=== PATIENT | male | born 1930 | race Caucasian/White ===

== ENCOUNTER 2017-07-30 12:06 | Inpatient (IN) | payer BC ==
[~2017-07-30] VITALS: Ht 188 cm; Wt 93.0 kg
[2017-07-30 12:06] VITALS: BP_SYST 171
--- NOTE | 2017-07-30 12:06 | NUR ---
[facility] BLS from [facility]. Patient to ER bed 02 to gown for evaluation. Side rails up.
--- NOTE | 2017-07-30 12:23 | NUR ---
Pt report received from SELENE Comer. Pt from [place], s/p fall onto Left hip. No external rotation or deformity noted. Difficulty extending LLE r/t pain.
--- NOTE | 2017-07-30 12:24 | NUR ---
X-ray at bedside.
[2017-07-30] MEDS ORDERED: MORPHINE 4 MG/ML INJ. SYRINGE IVP ONE (13:00)
[2017-07-30] MEDS ORDERED: ONDANSETRON HCL 4 MG/2 ML VIAL IVP ONE ×2 (13:00→14:15)
--- NOTE | 2017-07-30 14:00 | NUR ---
Updated Pt to plan of care. Pt's verbalized understanding. Currently awaiting new orders.
[2017-07-30 14:09] LABS: HEMOGLOBIN 13.6 g/dL (14.0-18.0); MEAN CORPUSCULAR HEMOGLOBIN 32 pg (27-31); MEAN CORPUSCULAR HGB CONC 32 % (32-36); MEAN CORPUSCULAR VOLUME 98 fL (79.0-98.0); MONOCYTES % (AUTO) 12.4 % (1.7-9.3); NEUTROPHILS % (AUTO) 67.2 % (40.0-70.0); PLATELET COUNT (AUTO) 183 K/uL (130-430); RED BLOOD CELL COUNT(AUTO) 4.29 MIL/uL (4.2-6.2); RED CELL DISTRIBUTION WIDTH 15.3 % (9.0-15.0); WHITE BLOOD COUNT (AUTO) 6.8 K/uL (4.8-10.8)
[2017-07-30 14:10] LABS: BASOPHILS % (AUTO) 0.5 % (0.0-2.0); EOSINOPHILS % (AUTO) 1.9 % (0.0-4.0)
[2017-07-30 14:11] LABS: ANION GAP 10 (5-15); CHLORIDE 94 mmol/L (98-107); EOSINOPHILS # (AUTO) 0.1 K/uL (0.0-0.4); LYMPHOCYTES # (AUTO) 1.2 K/uL (1.0-5.5); MONOCYTES # (AUTO) 0.8 K/uL (0.0-1.0); NEUTROPHILS # (AUTO) 4.7 K/uL (1.8-7.7); POTASSIUM 3.7 mmol/L (3.5-5.1); SODIUM SERUM 130 mmol/L (136-145)
[2017-07-30 14:12] LABS: ALANINE AMINOTRANSFERASE 19 U/L (12-78); ALBUMIN 3.8 g/dL (3.4-4.8); ASPARTATE AMINOTRANSFERASE 17 U/L (10-37); CALCIUM 9.1 mg/dL (8.4-11.0); CREATININE 0.93 mg/dL (0.55-1.30); GLUCOSE 113 mg/dL (70-99); TOTAL BILIRUBIN 0.5 mg/dL (0.0-1.0); UREA NITROGEN, BLOOD 14 mg/dL (8-21)
[2017-07-30] MEDS ORDERED: HYDROmorphone 1 MG INJ. 1 MG/ML AMPUL IVP ONE (14:15)
--- NOTE | 2017-07-30 14:31 | NUR ---
ADMISSION NOTE Received patient from ER via samaria, received report from Lori MORTON. Patient admitted with diagnosis of left hip Fracture. Patient oriented to hospital routine, call light, toileting and safety-patient verbalized understanding.
[2017-07-30 14:46] LABS: INR 2.1 (0.80-1.20); PROTHROMBIN TIME 23.9 SECS (9.5-12.5)
--- NOTE | 2017-07-30 14:58 | NUR ---
Pt admitted to [facility] bed 132A. Bedside report given to Caron RN.
--- NOTE | 2017-07-30 15:17 | NUR ---
ORTHO CONSULT CALLED TO DR SANTANA, DR ZHU PRINTED CIRCUIT BOARD DESIGNER, RE: L HIP FRACTURE. SPOKE TO TAMIR
--- NOTE | 2017-07-30 15:30 | NUR ---
Initial Note Received pt in bed, no s/s of distress or sob noted, pt has no c/o pain at this time, pt in stable condition, pt aaox4, verbal, iv catheter patent, no signs of infection or infiltration noted. Noted pt has a skin tear on left elbow and left knee, provided wound care and pictures in chart. F/C insertion performed by admitting nurse (Caron) and per nurse sample was sent to laboratory. Bed at lowest position, call light within reach, will continue to monitor pt for any changes. Fall precautions in place.
[2017-07-30] MEDS ORDERED: SIMV40TA2 PO (15:37)
[2017-07-30] MEDS ORDERED: ALLO300T2 PO (15:37)
[2017-07-30] MEDS ORDERED: SERT50TA12 PO (15:37)
[2017-07-30] MEDS ORDERED: CARV25TA55 PO (15:37)
[2017-07-30] MEDS ORDERED: WARF5TAB2 PO (15:37)
[2017-07-30] MEDS: D5NS 1,000 ML IV SCH (15:46)
--- NOTE | 2017-07-30 15:56 | NUR ---
FAMILY CALL Attempted to call daughter Lori for medication reconciliation, unable to leave voicemail due to voicemail not set up, will attempt to call back at a later time. Addendum: 07/30/17 at 1608 by Olga Fountain RN family unable to verify the dosage of the medication, will attempt to call the patients pharmacy
[2017-07-30] MEDS ORDERED: ONDANSETRON HCL 4 MG/2 ML VIAL IVP PRN (16:00)
--- NOTE | 2017-07-30 16:10 | NUR ---
Rounds Pt in bed, no s/s of distress or sob noted, pt has no c/o pain at this time, pt in stable condition, pt resting comfortably, will continue to monitor pt for any changes.
[2017-07-30] MEDS ORDERED: LISI-600 PO (16:15)
[2017-07-30] MEDS ORDERED: HYDR25TA4 PO (16:15)
[2017-07-30 16:27] VITALS: BP_SYST 135
[2017-07-30 16:42] LABS: CLARITY/URINE CLEAR (CLEAR); COLOR,URINE YELLOW (YELLOW)
[2017-07-30 16:43] LABS: BILIRUBIN,URINE NEGATIVE (NEGATIVE); BLOOD, URINE NEGATIVE (NEGATIVE); GLUCOSE,URINE NEGATIVE (NEGATIVE); KETONES,URINE NEGATIVE (NEGATIVE); LEUKOCYTE ESTERASE ,URINE NEGATIVE (NEGATIVE); NITRITE, URINE NEGATIVE (NEGATIVE); PH,URINE 6.5 (5.0-8.0); PROTEIN URINE NEGATIVE (NEGATIVE); UROBILINOGEN,URINE 0.2 (0.2-1.0)
--- NOTE | 2017-07-30 18:37 | NUR ---
CLOSING NOTE Pt in bed, no s/s of distress or sob noted, pt has no c/o pain at this time, pt in stable condition, pt aaox4, verbal, iv catheter patent, no signs of infection or infiltration noted. F/C draining via gravity. Bed at lowest position, call light within reach, will endorse care of pt to incoming nurse. Fall precautions in place.
--- NOTE | 2017-07-30 19:15 | NUR ---
BEDSIDE REPORT FROM SELENE CAMPA. PATIENT IN BED AWAKE ORIENTED X3. WATCHING TV SHOWS.
[2017-07-30 19:45] VITALS: BP_SYST 157
--- NOTE | 2017-07-30 19:45 | NUR ---
INITIAL NOTES: PATIENT VERBALIZING HOW HE FELL AT HOME. VITAL SIGNS TAKEN ,BP SLIGHTLY ELEVATED. HAS TOLERABLE LEFT HIP PAIN DUE TO FX 2/2 FALL AT HOME. IVF INFUSING WELL,SITE CLEAR. LEFT KNEE DRESSING DUE TO ABRASIONS /EXCORTIATIONS DRY AND INTACT. LEFT ELBOW DRESSING FELL OFF. CLEANSED SKIN TEAR ,ABRATIONS /BRUISED WITH NS ,THEN EMOLIENT DRESSING ,PLACED COVERED WITH BHAVESH GAUGE. EDUCATED ON PAIN CONTROL,NUTRITION,FEELS VERY THIRSTY, TURNING, BREATHING EXERCISES. IVF ,CALL SYSTEM ,BED ALARM ON.CALL LIGHT WITHIN REACH. BED IN LOW POSITION. NEEDS FREQUENT REMINDERS DUE TO AGE WITH UNDERSTANDING.
[2017-07-30 20:00] VITALS: BP_SYST 157
--- NOTE | 2017-07-30 20:30 | NUR ---
PATIENT KEEPS CALLING FOR SLEEPING ,REASSURE PATIENT WILL CALL MD.
--- NOTE | 2017-07-30 21:19 | NUR ---
PG DR FOR ORDERS [phone]
[2017-07-30] MEDS: MORPHINE 2 MG/ML INJ. SYRINGE IVP PRN (21:39)
--- NOTE | 2017-07-30 21:40 | NUR ---
pain: complain of severe left hip pain/ level 7/10. morphine 2mg iv given.
[2017-07-30] MEDS ORDERED: TEMAZEPAM 15 MG CAPSULE PO PRN (21:45)
[2017-07-30] MEDS ORDERED: ACETAMINOPHEN 325 MG TABLET PO PRN (21:45)
--- NOTE | 2017-07-30 21:45 | NUR ---
NOTIFIED ABOUT PATIENT NEED OF SLEEPING PILL. ORDERS GIVEN.
--- NOTE | 2017-07-30 22:40 | NUR ---
TRANSFER OF CARE: REPORT GIVEN TO SELENE DAVILA FOR CONTINUITY OF CARE.
--- NOTE | 2017-07-30 22:45 | NUR ---
BLOOD BANK [facility] GEM NOTIFIED RN ABOUT FFP ORDER. WILL CARRY ODERS.
[2017-07-30 23:26] VITALS: BP_SYST 142
--- NOTE | 2017-07-31 | NUR ---
PATIENT RESTING: Patient resting quietly. No acute distress noted. Vital signs within normal range.
--- NOTE | 2017-07-31 02:09 | NUR ---
NOTES I UNIT FROZEN PLASMA GIVEN ORDERED, VITALS STABLE, PATIENT DENIES ANY TRANSFUSION REACTION AT THIS TIME. WILL CONTINUE TO MONITOR.
[2017-07-31 04:20] VITALS: BP_SYST 126
--- NOTE | 2017-07-31 04:55 | NUR ---
NOTES FROZEN PLASMA TRANSFUSION DONE, VITALS STABLE, NO TRANSFUSION REACTION NOTED. WILL CONTINUE TO MONITOR.
--- NOTE | 2017-07-31 05:15 | NUR ---
NOTES 2ND UNIT FROZEN PLASMA GIVEN, VITALS STABLE, DENIES ANY TRANSFUSION REACTION AT THIS TIME. WILL CONTINUE TO MONITOR.
[2017-07-31] MEDS: MORPHINE 2 MG/ML INJ. SYRINGE IVP PRN ×2 (06:05→11:04)
--- NOTE | 2017-07-31 06:50 | NUR ---
CLOSING NOTES PATIENT AWAKE, VITALS STABLE, DENIES ANY PAIN AT THIS TIME. ALL NEEDS ATTENDED TO. CALL LIGHT PLACED WITHIN REACH.
--- NOTE | 2017-07-31 07:51 | NUR ---
OPENING NOTE: PATIENT IS RESTING IN BED COMFORTABLY, SEMI FOWLERS. PATIENT IS AAOX4. NO ACUTE SIGNS OF RESP DISTRESS, NO SOB. SKIN WARM DRY AND COLOR PINK. IV INTACT, NO REDNESS/SWELLING/PAIN TO SITE. NOTED BRUISING ON LEFT ELBOW S/P MECHANICAL FALL. PATIENT DENIES PAIN AT THIS TIME. BED AT LOWEST POSITION, CALL LIGHT IN REACH, BED ALARM ON, SIDE RAILX3, CLOSES TO NURSING STATION. WILL CONTINUE TO MONITOR.
--- NOTE | 2017-07-31 07:59 | NUR ---
Nutrition Update Sourav Scale 13 noted. Pt admitted for Hip fracture Diet: NPO BMI: 26.3 kg/m2 RD to follow per nutrition care standards.
[2017-07-31 08:12] VITALS: BP_SYST 129
[2017-07-31] MEDS: SIMVASTATIN 40 MG TABLET PO SCH (08:18)
[2017-07-31] MEDS: CARVEDILOL 25 MG TABLET (COREG) PO SCH (08:19)
--- NOTE | 2017-07-31 10:26 | NUR ---
ROUNDING: PT RESTING IN BED, SEMI FOWLERS. VISITORS AT BEDSIDE. NO ACUTE SIGNS OF RESP DISTRESS, NO SOB. SKIN WARM DRY AND PINK. IV INTACT AND PATENT, NO REDNESS/SWELLING/PAIN TO SITE. DENIES PAIN AT THIS TIME. PT DENIES DIZZINESS/LIGHTHEADED, SOB, AND NUMBNESS/TINGLING TO EXTREMITIES. ABLE TO MOVE TOES. SENSATION, CIRCULATION, AND PULSE PRESENT ON BLE. ALL NEEDS MET. CONTINUE TO MONITOR.
--- NOTE | 2017-07-31 12:00 | NUR ---
ROUNDING: PT RESTING IN BED, SEMI FOWLERS. NO ACUTE SIGNS OF RESP DISTRESS, NO SOB. SKIN WARM DRY AND PINK. IV INTACT AND PATENT, NO REDNESS/SWELLING/PAIN TO SITE. BED AT LOWEST POSITION, CALL LIGHT IN REACH, BED ALARM ON, SIDE RAILX3. FAMILY AT BEDSIDE.
[2017-07-31 12:51] VITALS: BP_SYST 122
[2017-07-31] MEDS: D5NS 1,000 ML IV SCH ×2 (13:04→17:40)
--- NOTE | 2017-07-31 15:20 | NUR ---
Ortho consult called again: for Dr. Coon (Dr. Scherer is covering), regarding hip fracture, ordered by Dr. Fierro, spoke with Yaneth.
--- NOTE | 2017-07-31 15:39 | NUR ---
ROUNDING: PT RESTING IN BED, NO ACUTE SIGNS OF RESP DISTRESS, NO SOB. SKIN COLOR PINK. IV INTACT AND PATENT, NO REDNESS/SWELLING TO SITE. BED AT LOWEST POSITION, CALL LIGHT IN REACH, BED ALARM ON, SIDE RAILX3.
[2017-07-31 16:34] VITALS: BP_SYST 121
--- NOTE | 2017-07-31 17:00 | NUR ---
ROUNDING: PT RESTING IN BED, SEMI FOWLERS. NO ACUTE SIGNS OF RESP DISTRESS, NO SOB. SKIN COLOR PINK. IV INTACT AND PATENT, NO REDNESS/SWELLING/PAIN TO SITE. FC INTACT AND DRAINING WELL TO GRAVITY. DENIES PAIN AT THIS TIME. PULSES, SENSATION AND CIRCULATION PRESENT ON BLE. BED AT LOWEST POSITION, CALL LIGHT IN REACH, BED ALARM ON, SIDE RAILX3.
--- NOTE | 2017-07-31 18:08 | NUR ---
CLOSING NOTE: PT RESTING IN BED, NO ACUTE SIGNS OF RESP DISTRESS, NO SOB. SKIN WARM DRY AND COLOR NORMAL FOR ETHNICITY. IV INTACT AND PATENT, NO REDNESS/SWELLING/PAIN TO SITE. FC INTACT AND DRAINING WELL. CHANGED DRESSING ON LEFT ARM BRUISE/TEAR FROM S/P MECHANICAL FALL. DENIES PAIN AT THIS TIME. BED AT LOWEST POSITION, CALL LIGHT IN REACH, BED ALARM ON, SIDE RAILX3. WILL ENDORSE PLAN OF CARE TO SELENE ALANIZ.
[2017-07-31 19:57] VITALS: BP_SYST 124
--- NOTE | 2017-07-31 20:45 | NUR ---
PATIENT AWAKE ALERT assist for position change , pillows used for off loading comfort measures implemented HOB elevated on 02 NC @ 2 LPM skin dry warm chest movement shallow also symmetrical call saenz with PT .
--- NOTE | 2017-07-31 22:00 | NUR ---
Dry skin noted to both lower legs bruising to left elbow , bruising to lower left leg from mechanical fall at assist living , fall measures implemented .
--- NOTE | 2017-07-31 22:25 | NUR ---
Phoned paged on heladio JIMENEZ for DVT Prophylaxis , return call pending .
--- NOTE | 2017-07-31 22:47 | NUR ---
PAGED I PAGED [phone] I SPOKE WITH ISMA OZIEL JIMENEZ REGISTERED PHLEBOTOMIST PART TIME DR. JIMENEZ HAS NOT CALL US YET
--- NOTE | 2017-07-31 23:15 | NUR ---
New ORDERS from DR JIMENEZ , apply SCD BILAT. lower extremities .
--- NOTE | 2017-07-31 23:16 | NUR ---
SCD applied to both lower extremities DVT prevention orthopedic patient / .
[2017-07-31 23:35] VITALS: BP_SYST 123
[2017-08-01 03:36] VITALS: BP_SYST 133
--- NOTE | 2017-08-01 04:13 | NUR ---
Hourly Rounding patient resting call with PT , assist for position change pillows used for off loading activity tolerated .
--- NOTE | 2017-08-01 05:01 | NUR ---
Patient is for orthopedic consult , DR RIZWANA MOORE , patient is alert & aware .
[2017-08-01] MEDS: D5NS 1,000 ML IV SCH ×2 (07:00→22:43)
--- NOTE | 2017-08-01 08:00 | NUR ---
OPENING NOTE ALERT, ORIENTED AWAKE AND EATING BREAKFAST. NO CURRENT ORDERS FOR SURGERY. VITALS STABLE, DENIES ANY PAIN. IN GOOD SPIRITS. LUNGS CRACKLES N BASES, IV SLOWED TO TKO. WILL SPEAK WITH MD REGARDING FLUID STATUS
[2017-08-01 08:39] VITALS: BP_SYST 160
[2017-08-01] MEDS: CARVEDILOL 25 MG TABLET (COREG) PO SCH (09:40)
[2017-08-01] MEDS: SIMVASTATIN 40 MG TABLET PO SCH (09:40)
--- NOTE | 2017-08-01 10:05 | NUR ---
SPOKE WITH DR ZHU, ORDERS FOR LEFT HIP PINNING SURGICAL CONSENT. PATIENT AWARE OF PROCEDURE AND WILL SIGN CONSENT WITH PHYSICIAN INFORMATION. FAMILY IS AT BEDSIDE. PT HAD DNR ON FILE, FAMILY AND PATIENT ARE AWARE DNR IS STAYED DURING SURGERY
[2017-08-01 12:00] VITALS: BP_SYST 99
--- NOTE | 2017-08-01 12:02 | NUR ---
PT NPO PENDING SURGERY. SLEEPING, DENIES ANY PAIN. PRE-OP CHECKLIST COMPLETE.
[2017-08-01] MEDS: MORPHINE 2 MG/ML INJ. SYRINGE IVP PRN (14:47)
[2017-08-01 16:11] VITALS: BP_SYST 117
--- NOTE | 2017-08-01 20:05 | NUR ---
PHONED PAGED DR MARKO MOORE / . REGARDING SURGERY .
--- NOTE | 2017-08-01 20:10 | NUR ---
DR WAGONER [employer] commerce consultant for DR MARKO MOORE SPOKE WITH Regarding patients Hip surgery , DR WAGONER says he cant give orders on this PT , & there for wait till DR ZHU ARRIVES TO SEE PATIENT , did update [facility]ID , THAT WE CAN NOT GET A HOLD OF DR ZHU .
[2017-08-01 21:03] VITALS: BP_SYST 119
--- NOTE | 2017-08-01 21:05 | NUR ---
Received call from DR MARKO MOORE , ok to give patient PM meal , then NPO @ midnight , procedure schedule at 1030 AM , per DR ZHU , FAMILY IS HERE & MADE AWARE .
--- NOTE | 2017-08-02 00:06 | NUR ---
NPO this Hour patient alert & aware , AM procedure with DR MARKO MOORE .
--- NOTE | 2017-08-02 00:19 | NUR ---
MRSA nares collected & sent to lab / .
[2017-08-02 01:31] VITALS: BP_SYST 131
--- NOTE | 2017-08-02 03:31 | NUR ---
Patient awake this hour and remains NPO .
[2017-08-02 03:48] VITALS: BP_SYST 150
--- NOTE | 2017-08-02 05:43 | NUR ---
Patient resting chest movement shallow NC @ 1 LPM 02 SAT 97 % HOB elevated no acute distress noted / . remains NPO .
--- NOTE | 2017-08-02 06:22 | NUR ---
CHG bed bath given patient tolerated .
[2017-08-02 06:47] LABS: BASOPHILS % (AUTO) 0.2 % (0.0-2.0); EOSINOPHILS # (AUTO) 0.2 K/uL (0.0-0.4); EOSINOPHILS % (AUTO) 2.1 % (0.0-4.0); HEMOGLOBIN 12.4 g/dL (14.0-18.0); MEAN CORPUSCULAR HEMOGLOBIN 34 pg (27-31); MEAN CORPUSCULAR HGB CONC 34 % (32-36); MEAN CORPUSCULAR VOLUME 97 fL (79.0-98.0); MONOCYTES # (AUTO) 1.1 K/uL (0.0-1.0); MONOCYTES % (AUTO) 11.4 % (1.7-9.3); NEUTROPHILS # (AUTO) 7.2 K/uL (1.8-7.7); NEUTROPHILS % (AUTO) 76.3 % (40.0-70.0); PLATELET COUNT (AUTO) 155 K/uL (130-430); RED CELL DISTRIBUTION WIDTH 14.6 % (9.0-15.0); WHITE BLOOD COUNT (AUTO) 9.5 K/uL (4.8-10.8)
[2017-08-02 07:05] LABS: ALANINE AMINOTRANSFERASE 17 U/L (12-78); ALBUMIN 3.2 g/dL (3.4-4.8); ANION GAP 10 (5-15); ASPARTATE AMINOTRANSFERASE 21 U/L (10-37); CALCIUM 8.8 mg/dL (8.4-11.0); CHLORIDE 94 mmol/L (98-107); CREATININE 0.75 mg/dL (0.55-1.30); GLUCOSE 108 mg/dL (70-99); POTASSIUM 3.5 mmol/L (3.5-5.1); SODIUM SERUM 129 mmol/L (136-145); TOTAL BILIRUBIN 1.2 mg/dL (0.0-1.0); UREA NITROGEN, BLOOD 14 mg/dL (8-21)
[2017-08-02 08:00] VITALS: BP_SYST 141
--- NOTE | 2017-08-02 08:03 | NUR ---
Opening Note Report received form NOC shift RN. Patient is in stable condition and is currently resting in bed. Call light is within reach and bed is in low position. IV is on the RAC running D5NS@75. Patient is currently NPO and is scheduled for surgery today. Will follow up.
[2017-08-02] MEDS: CARVEDILOL 25 MG TABLET (COREG) PO SCH (08:56)
[2017-08-02] MEDS: SIMVASTATIN 40 MG TABLET PO SCH (09:00)
--- NOTE | 2017-08-02 10:00 | NUR ---
RN Notes Patient left to unit to OR. Consent was signed and placed in the chart.
[2017-08-02 10:03] LABS: PROTHROMBIN TIME 21.9 SECS (9.5-12.5)
[2017-08-02] MEDS ORDERED: METOCLOPRAMIDE HCL 10 MG/2 ML VIAL IVP ONE (10:16)
[2017-08-02] MEDS ORDERED: BUPIVACAINE /EPINEPHRINE/PF 0.5% 30 ML VIAL INJ ONE (10:16)
[2017-08-02] MEDS ORDERED: KETOROLAC TROMETHAMINE 30 MG VIAL IVP ONE (10:16)
[2017-08-02] MEDS ORDERED: fentaNYL CITRATE 250 MCG/5 ML AMP IV ONE (10:16)
[2017-08-02] MEDS ORDERED: ePHEDrine sulfate 50 MG/ML VIAL IV ONE (10:16)
[2017-08-02] MEDS ORDERED: GLYCOPYRROLATE 0.2 MG/ML VIAL IJ ONE (10:16)
[2017-08-02] MEDS ORDERED: SEVOFLURANE 15 MIN GAS INH ONE (10:16)
[2017-08-02] MEDS ORDERED: LR 1,000 ML IV.SOLN IV ONE (10:16)
[2017-08-02] MEDS ORDERED: PROPOFOL 200MG/ 20ML VIAL (DIPRIVAN) IV ONE (10:16)
[2017-08-02] MEDS ORDERED: POLYMYXIN 500,000/BACIT.10,000 UNITS in NS IRR 1 L IR ONE (10:17)
[2017-08-02] MEDS ORDERED: LR 1,000 ML IV ONE (11:35)
[2017-08-02] MEDS ORDERED: NALBUPHINE HCL 10 MG/ML AMP IVP PRN (11:45)
[2017-08-02] MEDS ORDERED: NALOXONE HCL 0.4 MG/ML AMP (NARCAN) IVP PRN (11:45)
[2017-08-02] MEDS ORDERED: ePHEDrine sulfate 50 MG/ML VIAL IVP PRN (11:45)
[2017-08-02] MEDS ORDERED: ONDANSETRON HCL 4 MG/2 ML VIAL IVP PRN ×2 (11:45)
[2017-08-02] MEDS ORDERED: fentaNYL CITRATE/PF 100 MCG/2 ML AMP IVP PRN (11:45)
[2017-08-02] MEDS ORDERED: DIPHENHYDRAMINE INJ 50 MG/ML VIAL IVP PRN (11:45)
[2017-08-02] MEDS ORDERED: HYDROcodone/ACETAMIN 5-325 MG TAB (NORCO/ VICODIN) PO PRN ×2 (12:15→16:15)
[2017-08-02] MEDS ORDERED: IPRATROPIUM BROM 0.5 MG/2.5 ML VIAL.NEB (ATROVENT) INH ONE (12:17)
[2017-08-02] MEDS ORDERED: ALBUTEROL SULFATE 0.083% 2.5 MG/3 ML VIAL.NEB INH ONE (12:18)
[2017-08-02] MEDS: fentaNYL CITRATE/PF 100 MCG/2 ML AMP ONE ×2 (12:25→12:33)
--- NOTE | 2017-08-02 13:04 | NUR ---
RN Notes Patient returned back to the unit from OR. Patient is lethargic but arouseable. Right hip incision is covered with a surgical dressing. Iv is on the RFA 20g. O2 sat is at 93% on 2l. Berger catheter is to gravity. Will continue to monitor.
[2017-08-02] MEDS: CEFAZOLIN 1 GM IVPB PREMIX 50 ML IV SCH ×2 (14:54→22:47)
--- NOTE | 2017-08-02 15:13 | NUR ---
MD Called Called Dr. Beverly, who is covering for Dr. Fierro. Patient's heart dropped to 39. Will wait for further orders.
--- NOTE | 2017-08-02 15:14 | NUR ---
PAGED DR BLANCO [phone], KHAI SOARES
--- NOTE | 2017-08-02 15:43 | NUR ---
Spoke with Spoke with Dr. Beverly. ordred to hold Coreg, an EKG, and to transfer to tele. Endorsed care to Sienna Callahan LVN.
--- NOTE | 2017-08-02 16:00 | NUR ---
Quitman of Care Pt sound asleep. No signs of facial grimacing for pain or discomfort. No distress noted. O2 via nasal canula in place. Will continue to monitor.
[2017-08-02 17:07] VITALS: BP_SYST 129
--- NOTE | 2017-08-02 18:34 | NUR ---
Closing notes Pt awake still finishing up with his dinner. No complaints of pain or discomfort. No distress noted. Incision site covered with original dressing. Dressing appears dry, clean and intact. No drainage noted. Kept comfortable. Fall and safety precautions enforced. Encouraged to call for assistance. Call light within reach. Will endorse care to incoming nurse.
[2017-08-02 18:36] VITALS: BP_SYST 129
[2017-08-02 20:00] VITALS: BP_SYST 126
--- NOTE | 2017-08-02 22:35 | NUR ---
IV PLACEMENT: # 22 gauge angiocath placed to right wrist. Use of asceptic technique. Opsite placed over site. Blood return noted. Flushed with 5 cc of normal saline. No evidence of infiltration noted. Patient tolerated, no pain. resumed IV fluids.
[2017-08-02] MEDS: DOCUSATE SODIUM 100 MG CAPSULE PO SCH (22:46)
[2017-08-03] VITALS: BP_SYST 120
[2017-08-03 04:00] VITALS: BP_SYST 110
[2017-08-03] MEDS: D5NS 1,000 ML IV SCH ×2 (04:18→06:00)
[2017-08-03 07:40] LABS: BASOPHILS % (AUTO) 0.1 % (0.0-2.0); EOSINOPHILS # (AUTO) 0.3 K/uL (0.0-0.4); HEMOGLOBIN 11.8 g/dL (14.0-18.0); LYMPHOCYTES # (AUTO) 0.8 K/uL (1.0-5.5); MEAN CORPUSCULAR HEMOGLOBIN 33 pg (27-31); MEAN CORPUSCULAR HGB CONC 34 % (32-36); MEAN CORPUSCULAR VOLUME 98 fL (79.0-98.0); MONOCYTES # (AUTO) 1.2 K/uL (0.0-1.0); MONOCYTES % (AUTO) 10.8 % (1.7-9.3); NEUTROPHILS # (AUTO) 8.4 K/uL (1.8-7.7); NEUTROPHILS % (AUTO) 79.1 % (40.0-70.0); PLATELET COUNT (AUTO) 163 K/uL (130-430); RED BLOOD CELL COUNT(AUTO) 3.57 MIL/uL (4.2-6.2); RED CELL DISTRIBUTION WIDTH 14.9 % (9.0-15.0); WHITE BLOOD COUNT (AUTO) 10.7 K/uL (4.8-10.8)
[2017-08-03 08:00] VITALS: BP_SYST 163
--- NOTE | 2017-08-03 08:00 | NUR ---
PATIENT A/OX4, EATING BREAKFAST, V/S STABLE, SR ON MONITOR. NO SIGNS OF DISTRESS NOTED. IV ON LEFT AC, #20, SL. DRESSING ON LEFT HIP, CDI. SCDS ARE ON. CALL LIGHT IN PLACE, BED LOCKED AT THE LOWEST POSITION, WILL CONTINUE TO MONITOR. POC IS REVIEWED.
[2017-08-03 08:14] LABS: ALANINE AMINOTRANSFERASE 15 U/L (12-78); ANION GAP 8 (5-15); ASPARTATE AMINOTRANSFERASE 21 U/L (10-37); CALCIUM 8.5 mg/dL (8.4-11.0); CHLORIDE 96 mmol/L (98-107); CREATININE 0.69 mg/dL (0.55-1.30); GLUCOSE 124 mg/dL (70-99); POTASSIUM 3.5 mmol/L (3.5-5.1); SODIUM SERUM 129 mmol/L (136-145); TOTAL BILIRUBIN 1.2 mg/dL (0.0-1.0); UREA NITROGEN, BLOOD 17 mg/dL (8-21)
[2017-08-03] MEDS: CARVEDILOL 25 MG TABLET (COREG) PO SCH (09:03)
[2017-08-03] MEDS: SIMVASTATIN 40 MG TABLET PO SCH (09:04)
[2017-08-03] MEDS: DOCUSATE SODIUM 100 MG CAPSULE PO SCH ×2 (09:05→21:49)
[2017-08-03] MEDS: ENOXAPARIN SODIUM 40 MG/0.4 ML SYRINGE SUBCUT SCH (09:13)
--- NOTE | 2017-08-03 11:00 | NUR ---
PATIENT IS MOVED TO 133A. NO SIGNS OF DISTRESS NOTED DURING TRANSPORT.
--- NOTE | 2017-08-03 12:30 | NUR ---
patient finishes his lunch, tolerated well, no signs of distress noted.
[2017-08-03 12:35] VITALS: BP_SYST 139
--- NOTE | 2017-08-03 14:30 | NUR ---
Patient's family at bedside. POC is explained, they verbalized understanding.
[2017-08-03 16:10] VITALS: BP_SYST 142
--- NOTE | 2017-08-03 16:40 | NUR ---
PATIENT IS RESTING, SB ON MONITOR, NO SIGNS OF DISTRESS NOTED.
[2017-08-03] MEDS ORDERED: cloNIDine HCL 0.1 MG TABLET PO PRN (17:15)
--- NOTE | 2017-08-03 18:31 | NUR ---
PATIENT IS EATING DINNER, NO SIGNS OF DISTRESS NOTED. WILL CONTINUE TO MONITOR.
--- NOTE | 2017-08-03 19:35 | NUR ---
OPENING NOTES RECEIVED REPORT AT BEDSIDE. PATIENT IS A/OX4, RESPIRATIONS EVEN AND UNLABORED. IV PATENT AND FLUIDS INFUSING. JOYCE CATHETER DRAINING YELLOW URINE BY GRAVITY. DRESSING DRY AND INTACT ON LEFT HIP. PATIENT DENIES PAIN. LEFT LEG NON PITTING EDEMA. BILATERAL PEDAL AND POPLITEAL PULSES STRONG AND EVEN. FALL AND ISOLATION PRECAUTIONS IN PLACE, BED ALARM ON, CALL LIGHT WITHIN REACH.
[2017-08-03 20:30] VITALS: BP_SYST 131
--- NOTE | 2017-08-03 21:35 | NUR ---
RN ROUNDS PATIENT IS SLEEPING COMFORTABLY, VISIBLE RISE AND FALL OF CHEST NOTED. NO S/S OF ACUTE DISTRESS. FALL PRECAUTIONS IN PLACE, BED ALARM ON, CALL LIGHT WITHIN REACH.
[2017-08-04 00:09] VITALS: BP_SYST 171
--- NOTE | 2017-08-04 01:35 | NUR ---
RN ROUNDS NO CHANGE IN CONDITION. PT STABLE. NO S/S OF ACUTE DISTRESS NOTED.
[2017-08-04 05:00] VITALS: BP_SYST 157
--- NOTE | 2017-08-04 05:35 | NUR ---
RN ROUNDS NO CHANGE IN CONDITION. PT STABLE, SLEEPING. BED ALARM ON, CALL LIGHT WITHIN REACH.
--- NOTE | 2017-08-04 06:38 | NUR ---
CLOSING NOTES PATIENT IS SLEEPING. IV PATENT AND FLUIDS INFUSING. JOYCE CATHETER DRAINING YELLOW URINE BY GRAVITY. DRESSING DRY AND INTACT ON LEFT HIP. PATIENT WOULD DIP DOWN TO MARTY BETWEEN 36-49 FOR BRIEF PERIODS. ONCE PATIENT WAS ROUSED, HEART RATE WOULD CLIMB BACK UP. FALL AND ISOLATION PRECAUTIONS IN PLACE, BED ALARM ON, CALL LIGHT WITHIN REACH. WILL ENDORSE CARE TO DAYSHIFT NURSE.
[2017-08-04] MEDS: SIMVASTATIN 40 MG TABLET PO SCH (08:00)
[2017-08-04] MEDS: DOCUSATE SODIUM 100 MG CAPSULE PO SCH (08:00)
[2017-08-04] MEDS: ENOXAPARIN SODIUM 40 MG/0.4 ML SYRINGE SUBCUT SCH (08:01)
[2017-08-04 08:07] VITALS: BP_SYST 155
--- NOTE | 2017-08-04 08:07 | NUR ---
AM ROUNDS: No s/s of distress noted. Will continue to monitor.
--- NOTE | 2017-08-04 10:22 | NUR ---
PATIENT RESTING: Patient resting quietly. No acute distress noted. Will continue to monitor.
--- NOTE | 2017-08-04 12:08 | NUR ---
PATIENT RESTING: Patient resting quietly. No acute distress noted. Will continue to monitor
--- NOTE | 2017-08-04 12:16 | NUR ---
COMMUNICATION: Dr. Orosco cleared patient for discharge.
[2017-08-04 12:17] VITALS: BP_SYST 150
[2017-08-04 12:22] VITALS: BP_SYST 170
--- NOTE | 2017-08-04 14:02 | NUR ---
PATIENT RESTING: Patient resting quietly. No acute distress noted. Will continue to monitor.
--- NOTE | 2017-08-04 14:20 | NUR ---
PT TRANSFERRED Report given to Crut at [facility]. Transfer packet with Transfer Orders and Medication Reconciliation form given to EMT with report. Exitcare provided. [facility] ID band removed, replaced with ID band with pt's name and . IV catheter left in place at the request of Curt. All belongings sent with patient. Patient left floor via gurney escorted by EMT in no distress.
--- NOTE | 2017-08-04 15:30 | NUR ---
PHYSICAL THERAPY CO-SIGN The Physical Therapy Progress Notes documented by Test Fixture Designer have been reviewed. Reviewed/Co-Signed by: Amna Anderson, PT Documentation Done by: Kris Holland PTA I concur with the PM documentation of this GARNETT FIXER. Plan: continue PT as per plan of care if he remains in this hospital. Addendum: 08/04/17 at 1554 by Amna Anderson PT Amended: Links added.
== END 2017-08-04 14:50 | DRG 481 ==
LOC: SED 12:06 → SMU 13:58 → STU 08-02 15:29
PROVIDERS: ADMIT Internal Medicine Hospice and Palliative Medicine; ATTEND Internal Medicine Hospice and Palliative Medicine
PROC: 30233L1 Transfusion of Nonautologous Fresh Plasma into Peripheral Vein, Percutaneous Approach (ICD-10-PCS; principal; 2017-07-31)
PROC: 30233K1 Transfusion of Nonautologous Frozen Plasma into Peripheral Vein, Percutaneous Approach (ICD-10-PCS; 2017-07-31)
PROC: 0QS704Z Reposition Left Upper Femur with Internal Fixation Device, Open Approach (ICD-10-PCS; 2017-07-31)
PROC: 2W6PXZZ Traction of Left Upper Leg (ICD-10-PCS; 2017-07-31)
DX: M80.052A Age-related osteoporosis with current pathological fracture, left femur, initial encounter for fracture (principal); D68.69 Other thrombophilia; G62.9 Polyneuropathy, unspecified; I48.2 Chronic atrial fibrillation; Z95.1 Presence of aortocoronary bypass graft; I10 Essential (primary) hypertension; Z87.891 Personal history of nicotine dependence; I25.10 Atherosclerotic heart disease of native coronary artery without angina pectoris; S72.012A Unspecified intracapsular fracture of left femur, initial encounter for closed fracture; Z79.01 Long term (current) use of anticoagulants; W01.0XXA Fall on same level from slipping, tripping and stumbling without subsequent striking against object, initial encounter; Y99.8 Other external cause status; Y92.89 Other specified places as the place of occurrence of the external cause; Y93.89 Activity, other specified; Z79.899 Other long term (current) drug therapy
CPT/HCPCS: 36415; 71010; 72170-TC; 72192-TC; 73502; 76000; 80048; 80053; 81003; 85018-TC; 85025; 85610-TC; 85730-TC; 86900; 86901; 87081; 93005; 97116-GP; 97530-GP; 99285; C1713; J0690; J1170; J1650; J1885; J2270; J2405; J2704; J2765; J3010; J3490; J7042; J7050; J7120; P9059